=== PATIENT | female | born 1965 | race Hispanic/Latino ===

== ENCOUNTER → 2020-12-10 | Outpatient (CLI) | payer OTHER ==
[~2020-12-10] VITALS: Ht 7.6 cm; Wt 105.2 kg
== END | disposition home or self-care (01) ==
LOC: DTH 13:59
PROVIDERS: ATTEND Surgery
DX: E66.01 Morbid (severe) obesity due to excess calories (principal); E78.00 Pure hypercholesterolemia, unspecified; K76.0 Fatty (change of) liver, not elsewhere classified
CPT/HCPCS: 97802

== ENCOUNTER → 2020-12-25 | Outpatient (CLI) | payer OTHER | END | disposition home or self-care (01) | LOC: DTH 09:26 | PROVIDERS: ATTEND Surgery | DX: E66.01 Morbid (severe) obesity due to excess calories (principal) | CPT/HCPCS: 97803 ==

== ENCOUNTER → 2021-01-22 | Outpatient (CLI) | payer OTHER | END | disposition home or self-care (01) | LOC: DTH 16:08 | PROVIDERS: ATTEND Surgery | DX: E66.01 Morbid (severe) obesity due to excess calories (principal); E78.00 Pure hypercholesterolemia, unspecified; K76.0 Fatty (change of) liver, not elsewhere classified | CPT/HCPCS: 97803 ==

== ENCOUNTER → 2021-04-05 | Outpatient (CLI) | payer BC | END | disposition home or self-care (01) | LOC: RAH 08:59 | PROVIDERS: ATTEND Internal Medicine | DX: Z01.818 Encounter for other preprocedural examination (principal) | CPT/HCPCS: 71046 ==

== ENCOUNTER 2021-04-11 09:00 | Observation (INO) | payer BC ==
[~2021-04-11] VITALS: Ht 160 cm; Wt 105.2 kg
[2021-04-11 11:55] LABS: BASOPHILS % (AUTO) 0.5 % (0.0-5.0); EOSINOPHILS % (AUTO) 0.7 % (0.0-8.0); HEMATOCRIT 43.8 % (36-48); LYMPHOCYTES % (AUTO) 24.3 % (21.0-51.0); MEAN CORPUSCULAR HEMOGLOBIN 31.7 pg (27.0-33.0); MEAN CORPUSCULAR HGB CONC 33.3 g/dL (32.0-36.0); MEAN CORPUSCULAR VOLUME 95.2 fL (79-99); MONOCYTES % (AUTO) 6.4 % (3.0-13.0); NEUTROPHILS % (AUTO) 67.9 % (40.0-77.0); PLATELET COUNT (AUTO) 194 K/uL (130-400); WHITE BLOOD COUNT (AUTO) 8.5 K/uL (4.8-10.8)
[2021-04-11 11:59] LABS: CREATININE 0.7 mg/dL (0.5-1.5); POTASSIUM 4.3 mmol/L (3.5-5.1)
[2021-04-17 09:07] VITALS: BP 140/88
[2021-04-17] MEDS ORDERED: ESTROGEN PELLETS (09:44)
[2021-04-17] MEDS ORDERED: ESCI20TA38 PO (09:44)
[2021-04-17] MEDS ORDERED: MONT-39 PO (09:44)
[2021-04-17] MEDS ORDERED: ALEN70TA80 PO (09:44)
[2021-04-17] MEDS ORDERED: MELO-106 PO (09:44)
[2021-04-17] MEDS ORDERED: LEVO100T6 PO (09:44)
[2021-04-18] VITALS (20 sets, daily range): BP systolic 113–159; BP diastolic 58–96
[2021-04-18] MEDS ORDERED: METHYLENE BLUE 5 MG/ML AMP ONE (06:58)
[2021-04-18] MEDS ORDERED: BUPIVACAINE/EPI/PF 0.5% 30ML VIAL IJ ONE (06:58)
[2021-04-18] MEDS ORDERED: LACTATED RINGERS 1000ML 1,000 ML IV ONE (06:59)
[2021-04-18] MEDS ORDERED: ONDANSETRON 4MG INJ ONE ×2 (07:23→09:35)
[2021-04-18] MEDS ORDERED: DEXAMETHASONE SOD PHOSPHATE 10MG/ML 1ML VIAL ONE (07:23)
[2021-04-18] MEDS ORDERED: LIDOCAINE PF 100MG/5ML (2%) SYRINGE 5ML ONE (07:23)
[2021-04-18] MEDS ORDERED: SUCCINYLCHOLINE CHLORIDE 20 MG/ML 10 ML VIAL ONE (07:23)
[2021-04-18] MEDS ORDERED: MIDAZOLAM HCL 1 MG/ML 2ML VIAL ONE (07:24)
[2021-04-18] MEDS ORDERED: PROPOFOL 10 MG/ML 20ML VIAL IV ONE (07:24)
[2021-04-18] MEDS ORDERED: NEOSTIGMINE 5MG/5ML SYR IV ONE (07:24)
[2021-04-18] MEDS ORDERED: FENTANYL CITRATE PF 50 MCG/1 ML 2ML VIAL ONE (07:24)
[2021-04-18] MEDS ORDERED: GLYCOPYRROLATE 1 MG/5 ML SYRINGE ONE (07:24)
[2021-04-18] MEDS ORDERED: ROCURONIUM 10MG/1ML SYR 10 MG/ML ML ONE (07:24)
[2021-04-18] MEDS: CEFOXITIN SODIUM 1 GM VIAL ONE ×2 (07:25→08:20)
[2021-04-18] MEDS ORDERED: HEPARIN 5,000 UNIT VIAL ONE (07:36)
[2021-04-18] MEDS ORDERED: MEPERIDINE-PF 25 MG/ML SYG ONE ×2 (08:52→10:12)
[2021-04-18] MEDS ORDERED: MORPHINE 2 MG SYG IM PRN ×2 (13:00)
[2021-04-18] MEDS ORDERED: HYDROMORPHONE PCA 10MG/50 ML ( 0.2 MG/ML ) IV PRN (13:00)
[2021-04-18] MEDS ORDERED: PROMETHAZINE HCL 25 MG/ML 1ML AMPULE IM PRN ×2 (13:30)
[2021-04-18] MEDS ORDERED: LACTATED RINGERS 1000ML 1,000 ML IV SCH (13:30)
[2021-04-18] MEDS ORDERED: MORPHINE 4 MG SYG IM PRN (13:30)
[2021-04-18] MEDS: INSULIN R PO SS1 SQ SCH (18:00)
[2021-04-18] MEDS: FAMOTIDINE 20MG VIAL IV SCH (21:42)
[2021-04-18] MEDS: HEPARIN 5,000 UNIT VIAL SQ SCH (21:50)
[2021-04-19 04:03] VITALS: BP 137/74
[2021-04-19] MEDS: INSULIN R PO SS1 SQ SCH ×3 (06:00→11:57)
[2021-04-19 08:00] VITALS: BP 123/71
[2021-04-19] MEDS: FAMOTIDINE 20MG VIAL IV SCH (08:05)
[2021-04-19] MEDS: HEPARIN 5,000 UNIT VIAL SQ SCH (08:06)
[2021-04-19 11:43] VITALS: BP 114/62
== END 2021-04-19 15:35 | disposition home or self-care (01) ==
LOC: EDSTATUS 09:00 → DAHIP 04-18 06:22 → 4BH 04-18 10:39 → 4CH 04-19 09:15
PROVIDERS: ADMIT Surgery; ATTEND Surgery
DX: E66.01 Morbid (severe) obesity due to excess calories (principal); Z20.822 Contact with and (suspected) exposure to COVID-19; E03.9 Hypothyroidism, unspecified; M19.90 Unspecified osteoarthritis, unspecified site; F32.A Depression, unspecified; Z79.899 Other long term (current) drug therapy
CPT/HCPCS: 36415; 43775; 80048; 82948; 85025; 87635; 96365; 96366 ×2; 96372 ×2; 96375; 96376; A4215 ×2; A4216; A4221; A4222; A4223 ×2; A4649 ×4; A4663; A4930 ×3; G0378 ×30; G0379; J0330; J0694; J1100; J1170; J1644 ×3; J2001; J2175 ×2; J2250; J2405 ×2; J2704; J2710; J3010; J3490 ×4; J7030; J7120 ×2; Q9968

== ENCOUNTER 2022-05-06 16:58 | Emergency (ER) | payer BC ==
[~2022-05-06] VITALS: Ht 160 cm; Wt 87.5 kg
[~2022-05-06 16:58] MED LIST: ALEN70TA80 PO; ESCI20TA38 PO; ESTROGEN PELLETS; LEVO100T6 PO; MELO-106 PO; MONT-39 PO
[2022-05-06 17:45] LABS: BASOPHILS % (AUTO) 0.1 % (0.0-5.0); EOSINOPHILS % (AUTO) 0.1 % (0.0-8.0); HEMATOCRIT 43.7 % (36-48); LYMPHOCYTES % (AUTO) 4.8 % (21.0-51.0); MEAN CORPUSCULAR HEMOGLOBIN 31.9 pg (27.0-33.0); MEAN CORPUSCULAR HGB CONC 33.9 g/dL (32.0-36.0); MEAN CORPUSCULAR VOLUME 94.2 fL (79-99); NEUTROPHILS % (AUTO) 90.8 % (40.0-77.0); PLATELET COUNT (AUTO) 128 K/uL (130-400); RED BLOOD CELL COUNT(AUTO) 4.64 MIL/uL (4.00-5.50); RED CELL DISTRIBUTION WIDTH 12.2 % (11.0-15.5); WHITE BLOOD COUNT (AUTO) 8.1 K/uL (4.8-10.8)
[2022-05-06 17:56] LABS: CREATININE 0.7 mg/dL (0.5-1.5); POTASSIUM 3.9 mmol/L (3.5-5.1)
[2022-05-06 18:01] LABS: ALBUMIN 3.8 g/dL (3.5-5.0); TOTAL PROTEIN, SERUM 7.6 g/dL (6.0-8.3)
[2022-05-06] MEDS ORDERED: IPRATROPIUM/ALBUTEROL SULFATE 3 ML SOLUTION IH ONE (18:30)
[2022-05-06] MEDS ORDERED: 0.9% NACL 500ML IV.SOLN 500 ML IV ONE (18:30)
[2022-05-06] MEDS ORDERED: FAMOTIDINE 20MG VIAL IV ONE (18:30)
[2022-05-06] MEDS ORDERED: SOLU-MEDROL 125MG VIAL IVP ONE (18:30)
[2022-05-06] MEDS ORDERED: ONDANSETRON 4MG INJ IVP ONE (18:30)
[2022-05-06] MEDS ORDERED: ACETAMINOPHEN 500 MG TABLET PO ONE (18:30)
[2022-05-06] MEDS ORDERED: IOHEXOL 350 MG/ML 100ML INFUS..BTL IV ONE (20:29)
[2022-05-06] MEDS ORDERED: AZIT500T2 PO (21:29)
[2022-05-06] MEDS ORDERED: ACET-66 PO (21:29)
[2022-05-06] MEDS ORDERED: GUAIF10 PO (21:29)
[2022-05-06] MEDS ORDERED: ALBU90AE2 IH (21:29)
[2022-05-06 22:01] VITALS: BP 122/56
== END 2022-05-06 22:02 | disposition home or self-care (01) ==
LOC: EDH 16:58
DX: R06.02 Shortness of breath (principal); F32.A Depression, unspecified; E03.9 Hypothyroidism, unspecified; M85.80 Other specified disorders of bone density and structure, unspecified site; Z79.1 Long term (current) use of non-steroidal anti-inflammatories (NSAID); Z20.822 Contact with and (suspected) exposure to COVID-19
CPT/HCPCS: 99284; 96374; 71270; 71045; 96375; 87635; 96361; 84484; 80053; 85025; 85378; 87040 ×2; 87804 ×2; 83605; 36415; 93005; 94760; 94640; C9803; J7040; J3490; J2930; J2405; Q9967